=== PATIENT | male | born 1955 | race Caucasian/White ===

== ENCOUNTER 2016-12-19 07:00 | Inpatient (IN) | payer OTHER ==
[~2016-12-19] VITALS: Ht 185.4 cm; Wt 136.1 kg
[2016-12-23] MEDS ORDERED: JANUVIA100 M1 PO (15:54)
[2016-12-23] MEDS ORDERED: METFORMIN HCL500 M2 PO (15:54)
[2016-12-23] MEDS ORDERED: LIPITOR20 M2 PO (15:54)
[2016-12-23] MEDS ORDERED: AMITRIPTYLINE H75 M2 PO (15:55)
[2016-12-23] MEDS ORDERED: TRAMADOL HCL50 M1 PO (15:55)
[2016-12-23] MEDS ORDERED: TROKENDI XR100 MG PO (15:55)
[2016-12-23] MEDS ORDERED: FIORICET 50-301 EACH (15:56)
[2016-12-23] MEDS ORDERED: IMITREX20 M1 (15:56)
[2016-12-23] MEDS ORDERED: ASPIRIN EC81 M1 PO (15:56)
[2016-12-28] MEDS ORDERED: MORPHINE SULFAT30 M7 PO (09:08)
[2016-12-28] MEDS ORDERED: COLACE100 M1 PO (09:08)
[2016-12-28] MEDS ORDERED: ASPIRIN325 M2 PO (09:08)
[2016-12-28] MEDS ORDERED: MIRALAX17 G1 PO (09:08)
[2016-12-28] MEDS ORDERED: DILAUDID4 M1 PO (09:08)
--- NOTE | 2016-12-28 09:09 | Patient Discharge Instructions ---
Discharge Instructions General Discharge Information You were seen/treated for: Left hip pain You had these procedures: 12/28/2016 left total hip arthroplasty Watch for these problems: Redness, swelling, fever, signs of infection. Uncontrolled pain, Excessive bleeding. Decreased range of motion or unable to bear weight. Chest pain, shortness of breath. Call Surgeon to remove: Stitches (14 DAYS) Do not soak the wound: Yes No bath, but you may shower: Yes Other wound care: Daily dry dressing changes Diet Continue normal diet: Yes Activity Activity Self Limited: Yes Activity Limited to: Weight bear as tolerated Additional ACTIVITY Info: Daily physical therapy Acute Coronary Syndrome Inclusion Criteria At DC or during hospital stay patient has or had the following: ACS DIAGNOSIS No Discharge Core Measures Meds if any: Prescribed or Continued at Discharge Meds if any: NOT Prescribed or Continued at Discharge Congestive Heart Failure Inclusion Criteria At DC or during hospital stay patient has or had the following: CHF DIAGNOSIS No Discharge Core Measures Meds if any: Prescribed or Continued at Discharge Meds if any: NOT Prescribed or Continued at Discharge Cerebrovascular accident Inclusion Criteria At DC or during hospital stay patient has or had the following: CVA/TIA Diagnosis No Discharge Core Measures Meds if any: Prescribed or Continued at Discharge Meds if any: NOT Prescribed or Continued at Discharge Venous thromboembolism Inclusion Criteria VTE Diagnosis No VTE Type NONE VTE Confirmed by (Test) NONE Discharge Core Measures - Per Current guidelines, there needs to be overlap - treatment for the first 5 days of Warfarin therapy. - If discharged on Warfarin prior to 5 days of - overlap therapy, the patient will need to be - assessed for post discharge needs including - *Post discharge parental anticoagulation - *Warfarin and/or parental anticoagulation education - *Follow up date to check INR post discharge At least 5 days overlap therapy as Inpatient No Meds if any: Prescribed or Continued at Discharge Note: Overlap Therapy is Warfarin and Anticoagulant Meds if any: NOT Prescribed or Continued at Discharge
--- NOTE | 2016-12-28 09:10 | Admission Core Measures ---
Acute Coronary Syndrome Inclusion Criteria ACS Diagnosis No Inpatient Core Measures LDL Reminder: If No, please order W/I first 24hr of stay Congestive Heart Failure Inclusion Criteria CHF Diagnosis No Cerebrovascular accident Inclusion Criteria CVA/TIA Diagnosis No Inpatient Core Measures Bedside Swallow Eval Reminder: If BSE failed, place ST order Antithrombotic Reminder: Order Antithrombotic Medication by end of day 2 Antithrombotic Reminder: Document Reason Antithrombotic Not ordered by end of day 2 AFIB/Flutter Reminder: If Present, add to problem list AFIB/Flutter Reminder: Order Anticoag Medication for pts with AFIB/Flutter Atherosclerosis Reminder: If Present, add to problem list LDL Reminder: If No, please order W/I first 24hr of stay PT Order Reminder: If No, please order Venous thromboembolism Inpatient Core Measures VTE Risk Factors: Age > 40, Obesity, Surgery [facility] prophylaxis d/t No contraindications No VTE Pharm Prophylaxis d/t No contraindications Inclusion Criteria - Per Current guidelines, there needs to be overlap - treatment for the first 5 days of Warfarin therapy. - Parenteral Anticoagulation (IV or SC) needs to be - given along with Warfarin therapy. VTE Diagnosis No VTE Type NONE VTE Confirmed by (Test) NONE Problem List As ranked by this Provider includes Assessment & Plan 1. Status post total hip replacement, left HOME MEDS Home Med List Amitriptyline HCl 75 MG TABLET 1 TAB PO QPM SLEEP (Reported) Aspirin (Ecotrin*) 81 MG TABLET.DR 1 TAB PO DAILY PROPHO (Reported) Aspirin (Aspirin*) 325 MG TABLET 1 TAB PO BID BLOOD THINNER Atorvastatin Calcium (Lipitor) 20 MG TABLET 1 TAB PO DAILY CHOLESTEROL ( Reported) Docusate Sodium (Colace) 100 MG CAPSULE 1 CAP PO BID PRN CONSTIPATION Hydromorphone HCl (Dilaudid) 4 MG TABLET 1-2 TAB PO Q4-6P PRN PAIN Metformin HCl (Metformin HCl ER) 500 MG TAB.ER.24 1 TAB PO DAILY DM II ( Reported) Morphine Sulfate 30 MG TABLET 1 TAB PO BID PAIN Polyethylene Glycol 3350 (Miralax) 17 GRAM POWD.PACK 1 PAC PO DAILY PRN CONSTIPATION Sitagliptin Phosphate (Januvia) 100 MG TABLET 1 TAB PO DAILY DM II (Reported) Topiramate (Trokendi XR) 100 MG CAP.ER.24H 1 TAB PO DAILY ?? (Reported) Tramadol HCl 50 MG TABLET 1 TAB PO TIDPRN PAIN (Reported)
--- NOTE | 2016-12-28 09:11 | Discharge Summary ---
Visit Information Visit Dates Admission Date: 12/28/16 Discharge Date: 12/28/16 Hospital Course Course Attending Physician: QUYNH WILLIAM MD Primary Care Physician: AMMON POTTS,CECILIO Hospital Course: Patient admitted to floor following procedure below. Patient ambulated with PT upon arrival to the floor. Patient continued to progress well. Upon discharge patient is afebrile, tolerating diet, pain controlled, ambulating well with rolling walker and PT. 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) oxacillin (Intermediate, FEVER 12/23/16) Significant Procedures: 12/28/2016 left total hip arthroplasty Disposition Summary Disposition Principal Diagnosis: Left hip pain Additional Diagnosis: None Discharge Disposition: home health services Discharge Instructions General Discharge Information Code Status: Full Code Patient's Diet: Resume normal diet Patient's Activity: Weightbearing as tolerated Daily physical therapy Follow-Up Instructions/Appts: Call office to schedule follow-up appointment Medications at Discharge Discharge Medications: Stop taking the following medications: Tramadol HCl (Tramadol HCl) 50 MG TABLET ORAL THREE TIMES A DAY NEEDED Aspirin (Ecotrin*) 81 MG TABLET.DR ORAL DAILY Continue taking these medications: Sitagliptin Phosphate (Januvia) 100 MG TABLET 1 Tablet ORAL DAILY Comments: TAKES AT NIGHT Metformin HCl (Metformin HCl ER) 500 MG TAB.ER.24 1 Tablet ORAL DAILY Instructions: TAKES AT NIGHT Atorvastatin Calcium (Lipitor) 20 MG TABLET 1 Tablet ORAL DAILY Instructions: TAKES AT NIGHT Topiramate (Trokendi XR) 100 MG CAP.ER.24H 1 Tablet ORAL DAILY Amitriptyline HCl (Amitriptyline HCl) 75 MG TABLET 1 Tablet ORAL Every night Butalb/Acetaminophen/Caffeine (Fioricet 50-300-40 MG Capsule) 50 MG-300 MG-40 MG CAPSULE as needed for MIGRAINE Sumatriptan (Imitrex) 20 MG SPRAY as needed for MIGRAINE Start taking the following new medications: Hydromorphone HCl (Dilaudid) 4 MG TABLET 1-2 Tablet ORAL Q4-6P as needed for PAIN Qty = 36 No Refills Morphine Sulfate (Morphine Sulfate) 30 MG TABLET 1 Tablet ORAL TWICE DAILY Qty = 5 No Refills Aspirin (Aspirin*) 325 MG TABLET 1 Tablet ORAL TWICE DAILY Qty = 60 No Refills Docusate Sodium (Colace) 100 MG CAPSULE 1 Capsule ORAL TWICE DAILY as needed for CONSTIPATION Qty = 30 No Refills Polyethylene Glycol 3350 (Miralax) 17 GRAM POWD.PACK 1 Packet ORAL DAILY as needed for CONSTIPATION Qty = 14 No Refills Instructions: dissolve in water Copies To: AMMON POTTS,CECILIO
--- NOTE | 2016-12-28 10:47 | RADIOLOGY REPORT ---
EXAMINATION: XR HIP, LEFT CLINICAL INFORMATION: Status post hip arthroplasty COMPARISON: None TECHNIQUE: Two views of the left hip. FINDINGS: There is total left hip arthroplasty with prosthetic components in satisfactory alignment. No soft tissue abnormality seen. IMPRESSION: Total left hip arthroplasty with prosthetic components in satisfactory alignment. No bony abnormality seen.
[2016-12-28 11:30] VITALS: BP 120/80
--- NOTE | 2016-12-28 13:54 | PN- Orthopedic ---
See Addendum Subjective Subjective: Post Op Note s/p left total hip arthroplasty Patient c/o pain that is mild to moderate right now but he just took PO pain meds Denies numbness/tingling in LLE Denies n/v. Denies CP/SOB Patient walked from stretcher in hallway to bed but has not worked with PT yet Objective Vital Signs and I&Os Vital Signs Date Time Temp Pulse Resp B/P Pulse O2 O2 Flow FiO2 Ox Delivery Rate 12/28 1130 98.2 85 16 120/80 Physical Exam: Gen: NAD, comfortable, A&Ox3 Chest: NRD, RRR Ext: Left hip dressing c/d/i. Left thigh compartments soft. No calve TTP/ Swelling. NV intact BLE. Current Medications: Current Medications Sig/Arielle Start time Last Medication Dose Route Stop Time Status Admin Acetaminophen 650 MG Q4P PRN 12/28 1145 AC PO Acetaminophen 975 MG ONCE 12/28 0000 DC PO 12/28 2359 Acetaminophen/ 1 TAB Q4P PRN 12/28 0845 AC Butalbital/Caffeine PO Amitriptyline HCl 75 MG AT BEDTIME 12/28 2200 AC PO Aspirin 325 MG BID 12/28 1000 AC 12/28 PO 1345 Atorvastatin Calcium 20 MG 1700 12/28 1700 AC PO Cefazolin Sodium 2 GM IQ8 12/28 1600 AC N/A 1 UNIT IV 12/29 0029 Cefazolin Sodium 3,000 MG ONCE 12/28 0000 DC IV 12/28 2359 Dextrose/Sodium 1,000 ML Q13H 12/28 1145 AC 12/28 Chloride IV 1214 Docusate Sodium 100 MG DAILY 12/28 1000 AC 12/28 PO 1345 Hydromorphone HCl 2 MG Q4P PRN 12/28 1145 AC PO Hydromorphone HCl 4 MG Q4P PRN 12/28 1145 AC PO Hydromorphone HCl 0.5 MG Q3P PRN 12/28 1145 AC 12/28 IV 1227 Insulin Human Regular 0 TIDAC/HS 12/28 1200 AC 12/28 SC 1253 Ketorolac 15 MG Q6P PRN 12/28 1145 AC Tromethamine IV 12/31 1137 Ondansetron HCl 4 MG Q6P PRN 12/28 1145 AC IV Oxycodone HCl 10 MG .STK-MED ONE 12/28 0657 DC PO 12/28 0658 Oxycodone HCl 10 MG ONCE 12/28 0000 DC PO 12/28 2359 Polyethylene Glycol 17 GM DAILY 12/28 1000 AC 12/28 PO 1345 Sumatriptan Succinate 25 MG DAILY NEEDED PRN 12/28 0845 AC PO Topiramate 50 MG BID 12/28 1000 AC PO Assessment/Plan Assessment/Plan 61yo M POD#0 s/p left LUIS MANUEL. AVSS, patient stable. - OOB with PT - Pain control - ASA 325mg PO BID - PRN zofran - ALPS/TEDS - DC IVF when tolerating PO - Diet as tolerated - DC home if cleared by PT Core Measures/Miscellaneous Venous Thromboembolism VTE Risk Factors: Age > 40, Obesity, Surgery VTE Contraindications: No Contraindications VTE Diagnosis: No VTE Type: NONE VTE Confirmed by (Test): NONE Beta Rere Is Beta Rere a Home Med? No Antibiotics Is Patient on Antibiotics? Yes If Yes: prophylaxis
--- NOTE | 2016-12-28 17:36 | Operative Report ---
Operative/Inv Procedure Report Surgery Date: 12/28/16 Name of Procedure: Left total hip replacement Pre-Operative Diagnosis: Primary left hip DJD Post-Operative Diagnosis: Same Estimated Blood Loss: 300 Surgeon/Knee Bolter: STEWART POTTS,QUYNH Garcia Anesthesia: block Operative/Procedure Note Note: Description of Procedure: The patient was taken to the operating room and positively identified. After induction of spinal anesthesia and administration of appropriate pre-operative antibiotics, the patient was positioned supine on the operating room table and all bony prominences were well padded. After performing a surgical timeout, the left lower extremity was prepped and draped in the usual sterile fashion. A direct anterior approach was made to the left hip. The incision was carried sharply through superficial soft tissues to the level of the fascia. Meticulous hemostasis was maintained with Bovie electocautery. The fascia over the tensor fascia tamy muscle was opened sharply and the interval between the TFL and the sartorius was entered bluntly taking care to stay lateral to the lateral femoral cutaneous nerve. Retractors were placed around the femoral neck and the pericapsular fat was identified. The ascending branches of the lateral femoral circumflex vessels were identified and carefully coagulated. The pericapsular fat and anterior capsule were then resected. A napkin ring osteotomy was performed and the femoral head was removed without difficulty. Attention was then turned to the acetabulum. After appropriate placement of retractors, the acetabulum was exposed. Soft tissue was cleaned from the acetabular margin and notch. Overhanging osteophytes were removed and the teardrop was exposed. The acetabulum was then sequentially reamed to accept a 62 mm [employer] Tritanium hemispherical solid back shell. This was impacted into place in the appropriate position and fitted with a 36 mm Trident X3 zero degree polyethylene insert. Attention was then turned to the femur. After performing the appropriate ligament releases, the proximal femur was exposed. It was then sequentially broached to accept a size 7 [place] Anato stem. This was trialed for leg length and stability. The trial component was removed and the final component was impacted into place. The trunnion was carefully cleaned and fit with a 36 mm, + 2.5 Biolox delta ceramic femoral head. The hip was reduced and put through a full range of motion and found to be stable. The articular space was then irrigated with sterile saline. The periarticular soft tissues were infilitrated with Marcaine. The fascial layer was closed with interrupted #1 vicryl suture and the skin was re-approximated with interrupted 2 -0 vicryl. The skin was closed with a running 3-0 V-Lock suture. Steri-strips and a sterile dressing were applied. The patient was awakened and taken to the recovery room in satisfactory condition.
== END 2016-12-28 15:30 | disposition home health service (06) | DRG 470 ==
LOC: ENRESERVDT → ENRESERVTM → SDA 07:00 → ENPENDDIS 12-28 02:54 → SDA 12-28 02:54 → 2NA 12-28 11:20
PROVIDERS: ADMIT Orthopaedic Surgery
PROC: 0SRB04A Replacement of Left Hip Joint with Ceramic on Polyethylene Synthetic Substitute, Uncemented, Open Approach (ICD-10-PCS; principal; 2016-12-28)
DX: M16.12 Unilateral primary osteoarthritis, left hip (principal); E66.01 Morbid (severe) obesity due to excess calories; Z68.35 Body mass index [BMI] 35.0-35.9, adult; E11.9 Type 2 diabetes mellitus without complications; Z79.84 Long term (current) use of oral hypoglycemic drugs; Z87.891 Personal history of nicotine dependence
CPT/HCPCS: 2NAP; 73502-LT; 88304; 97110-GO; 97116-GO; 97161-GP; 97530-GO; J0690; J0735; J1815; J3490; J7042